=== PATIENT | female | born 1995 | race African-American/Black ===

== ENCOUNTER 2019-05-18 00:55 | Emergency (ER) ==
[2019-05-18 02:44] LABS: #Eosinphils 0.2 thou/uL (0.0-0.7); #Lymphocytes 2.6 thou/uL (1.20-3.40); #Monocytes 0.6 thou/uL (0.11-0.59); #Neutrophils 11.4 thou/uL (1.40-6.50); %Basophils 0.1 % (0.0-1.0); %Eosinophils 1.6 % (0.0-10.0); %Lymphocytes 17.6 % (21.0-51.0); %Monocytes 4.1 % (0.0-10.0); %Neutrophils 76.6 % (42.0-75.0); Hemoglobin 11.7 g/dL (12.0-16.0); Mean Corpuscular HGB CONC 34.5 g/dL (32.0-36.0); Mean Corpuscular Hemoglobin 26.2 pg (27.0-31.0); Mean Corpuscular Volume 75.9 fL (78.0-98.0); Mean Platelet Volume 9.2 fL (7.4-10.4); Platelet Count 445 thou/uL (130-400); RBC Distribution Width 15.3 % (11.5-14.5); Red Blood Cell (RBC) Count 4.48 mill/uL (4.20-5.40); White Blood Cell (WBC) Count 14.9 thou/uL (4.8-10.8)
[2019-05-18 03:06] LABS: ALT (SGPT) 11 U/L (8-55); AST (SGOT) 9 U/L (5-34); Alkaline Phosphatase 101 U/L (40-110); Anion Gap 12 mmol/L (10-20); BUN (Urea Nitrogen) 11 mg/dL (7.0-18.7); Bilirubin, Total 0.4 mg/dL (0.2-1.2); Calc. Creatinine Clearance 0 mL/min (70-130); Calcium 9.3 mg/dL (7.8-10.44); Carbon Dioxide 24 mmol/L (22-29); Chloride 101 mmol/L (98-107); Estimated GFR-MDRD 46; Globulin 4.5 g/dL (2.4-3.5); Glucose 208 mg/dL (70-105); Potassium 3.9 mmol/L (3.5-5.1); Protein, Total 8.5 g/dL (6.0-8.3); Sodium 133 mmol/L (136-145)
[2019-05-18] MEDS ORDERED: cefTRIAXone\\ROCEPHIN 2 GM VIAL ONE (03:16)
[2019-05-18] MEDS ORDERED: Metoclopramide HCl 10 MG/2 ML VIAL ONE (03:16)
[2019-05-18 03:53] LABS: Bilirubin Negative (Negative); Blood, Urine Negative (Negative); Clarity Clear (Clear); Glucose, Urine (Dipstick) Normal (Negative); Leukocyte 25 Leu/uL (Negative); Nitrite Negative (Negative); Protein, Urine (Dipstick) 30 mg/dL (Neg-Trace); RBC/HPF 0-3 HPF (0-3); Squamous Epithelial 0-3 HPF (0-3); Urobilinogen Normal mg/dL (Less than 2)
[2019-05-18 03:54] LABS: Bacteria/HPF 1+ HPF (None Seen)
[2019-05-18 03:57] LABS: Pregnancy Test - Urine (BHCG) Negative (Negative); Pregu Control Background? CLEAR/WHITE (CLR/WHITE); Pregu Control Bar Appear? YES (CONTROL BAR); Specific Gravity 1.022 (1.002-1.036)
--- NOTE | 2019-05-18 07:42 | CT ---
PRELIMINARY REPORT/[facility]/EMERGENCY AFTER HOURS PROCEDURE: EXAM: CT Head and maxillary facial bones without and without IV contrast. CLINICAL HISTORY: This is a 23 yo female with a pmh of seizures and asthma who presents to the ER wit h a cc of facial weakness on the right, photophobia, and headache. She states the symptoms are associated with a toothache. She states the tooth has been bothering her for 1 week. She reports the headache is frontal. She reports some pain with eye movement TECHNIQUE: Axial computed tomography images were acquired of the head/brain, and of the facial bones, without and with intravenous contrast. Sagittal and coronal reformatted images were obtained of the facial bones. FINDINGS: BRAIN: No acute intraparenchymal hemorrhage. No mass lesion. No CT evidence for acute territorial inf arct. No midline shift or extra-axial collection. VENTRICLES: No hydrocephalus. ORBITS: The orbits are unremarkable. SINUSES AND MASTOIDS: There is a complete opacification of the left maxillary sinus and of the left e thmoid sinus air cells. SOFT TISSUES: No significant facial or scalp soft tissue swelling evident. No radiopaque foreign body is seen. BONES: No acute fracture is evident on images of the facial bones, or the head. MISCELLANEOUS: There are a few slightly enlarged lymph node in the bilateral neck region with the lar gest one measuring up to 1.1 cm. IMPRESSION: 1. There is a complete opacification of the left maxillary sinus and of the left ethmoid sinus air ce lls. 2. There are a few slightly enlarged lymph node in the bilateral neck region with the largest one britni suring up to 1.1 cm. ELECTRONICALLY SIGNED BY: Bimal Santiago MD May 18, 2019 4:30:48 AM CDT FINAL REPORT HEAD CT WITHOUT CONTRAST: HISTORY: Seizure. Headache. Pain. COMPARISON: None. FINDINGS: Hemorrhage: No intraparenchymal hemorrhage or extra-axial hematoma. Brain parenchyma: Cortical cano-white matter differentiation is preserved. No mass effect or midline shift. Basilar cisterns are patent. Ventricular system: Ventricles and sulci are patent and symmetric. Calvarium: Intact. Sinuses and mastoid air cells: Left paranasal sinus disease. Hyperdense material may represent inspis sated secretions or possible fungal infection. There is bony hypertrophy suggesting a chronic process. IMPRESSION: 1. This report is in agreement with initial report by [facility]. 2. Left sinus disease. Correlate clinically Transcribed Date/Time: 05/18/2019 8:00 AM
--- NOTE | 2019-05-18 07:57 | CT ---
PRELIMINARY REPORT/[facility]/EMERGENCY AFTER HOURS PROCEDURE: EXAM: CT Head and maxillary facial bones without and without IV contrast. CLINICAL HISTORY: This is a 23 yo female with a pmh of seizures and asthma who presents to the ER wit h a cc of facial weakness on the right, photophobia, and headache. She states the symptoms are associated with a toothache. She states the tooth has been bothering her for 1 week. She reports the headache is frontal. She reports some pain with eye movement TECHNIQUE: Axial computed tomography images were acquired of the head/brain, and of the facial bones, without and with intravenous contrast. Sagittal and coronal reformatted images were obtained of the facial bones. FINDINGS: BRAIN: No acute intraparenchymal hemorrhage. No mass lesion. No CT evidence for acute territorial inf arct. No midline shift or extra-axial collection. VENTRICLES: No hydrocephalus. ORBITS: The orbits are unremarkable. SINUSES AND MASTOIDS: There is a complete opacification of the left maxillary sinus and of the left e thmoid sinus air cells. SOFT TISSUES: No significant facial or scalp soft tissue swelling evident. No radiopaque foreign body is seen. BONES: No acute fracture is evident on images of the facial bones, or the head. MISCELLANEOUS: There are a few slightly enlarged lymph node in the bilateral neck region with the lar gest one measuring up to 1.1 cm. IMPRESSION: 1. There is a complete opacification of the left maxillary sinus and of the left ethmoid sinus air ce lls. 2. There are a few slightly enlarged lymph node in the bilateral neck region with the largest one britni suring up to 1.1 cm. ELECTRONICALLY SIGNED BY: Bimal Santiago MD May 18, 2019 4:30:48 AM CDT FINAL REPORT POSTCONTRAST CT FACE: HISTORY: Seizure. Asthma. Facial weakness, right-sided. Headache. Photophobia. TECHNIQUE: Postcontrast facial bone CT/face CT is performed in the axial plane. Reformatted images are submitted for interpretation. FINDINGS: There is left paranasal sinus disease. Mild bony hypertrophy of the left maxillary sinus suggesting a possible chronic infection. There is hyperdense material in the left maxillary sinus which may be due to fungal disease versus inspissated secretions. Additional hyperdensity is noted in the anterior left ethmoid air cells. Bilateral orbits are unremarkable. There is fullness of the nasopharynx at the level of the adenoid tonsil. Mild fullness of the palatin e tonsils. There are some scattered mildly enlarged bilateral soft tissue neck lymph nodes. Symmetric attenuation of the parotid and submandibular glands. There is mass effect upon the posterior hypopharynx due to medial deviation of both common carotid ar teries. IMPRESSION: 1. This report is in agreement with the initial report by [facility]. 2. Mildly enlarged nonspecific bilateral soft tissue neck lymph nodes. Clinical correlation is essent ial. 3. Left sinus disease. Transcribed Date/Time: 05/18/2019 8:28 AM
[2019-05-18] MEDS ORDERED: Iopamidol-370 76% 500 ML 1 ML ONE (15:24)
--- NOTE | 2019-05-19 11:21 | EKG ---
Test Reason : Blood Pressure : / mmHG Vent. Rate : 107 BPM Atrial Rate : 107 BPM P-R Int : 150 ms QRS Dur : 068 ms QT Int : 328 ms P-R-T Axes : 044 047 026 degrees QTc Int : 437 ms Sinus tachycardia Possible Left atrial enlargement Borderline ECG Confirmed by MYNOR GUIDRY, HERIBERTO Mckeon ([id number]), news assignment editor MAHOGANY ALFRED ([id number]) on 05/19/2019 11:21:29 AM Referred By: Confirmed By:HERIBERTO LOWE MD
== END 2019-05-18 05:09 | disposition left against medical advice (07) ==
LOC: ERS 00:55
DX: J32.0 Chronic maxillary sinusitis (principal); J45.909 Unspecified asthma, uncomplicated; F31.9 Bipolar disorder, unspecified; F20.9 Schizophrenia, unspecified
CPT/HCPCS: 36415; 70450; 70487; 80053; 81003; 81015; 81025; 83605; 85025; 87040; 87077; 87149; 93005; 96361; 96365; 96375; J0696; J2765; Q9967

== ENCOUNTER 2019-05-19 13:01 | Inpatient (IN) | payer SELFPAY, OTHER ==
[2019-05-19] MEDS ORDERED: Iopamidol-370 76% 500 ML 1 ML ONE (13:59)
[2019-05-19] MEDS ORDERED: Piperacillin/Tazobactam 4.5 GM VIAL ONE (14:43)
[2019-05-19 14:49] LABS: #Eosinphils 0.1 thou/uL (0.0-0.7); #Lymphocytes 1.2 thou/uL (1.20-3.40); #Monocytes 0.7 thou/uL (0.11-0.59); #Neutrophils 8.1 thou/uL (1.40-6.50); %Basophils 0.1 % (0.0-1.0); %Eosinophils 0.8 % (0.0-10.0); %Lymphocytes 11.7 % (21.0-51.0); %Monocytes 6.6 % (0.0-10.0); %Neutrophils 80.8 % (42.0-75.0); Hemoglobin 11.2 g/dL (12.0-16.0); Mean Corpuscular HGB CONC 33.6 g/dL (32.0-36.0); Mean Corpuscular Hemoglobin 25.9 pg (27.0-31.0); Mean Corpuscular Volume 76.9 fL (78.0-98.0); Mean Platelet Volume 9.1 fL (7.4-10.4); Platelet Count 397 thou/uL (130-400); RBC Distribution Width 15.3 % (11.5-14.5); Red Blood Cell (RBC) Count 4.35 mill/uL (4.20-5.40)
[2019-05-19] MEDS ORDERED: Acetaminophen 650 MG Suppository ONE (15:06)
[2019-05-19 15:15] LABS: ALT (SGPT) 11 U/L (8-55); AST (SGOT) 18 U/L (5-34); Albumin 3.9 g/dL (3.5-5.0); Alkaline Phosphatase 95 U/L (40-110); Anion Gap 16 mmol/L (10-20); BUN (Urea Nitrogen) 10 mg/dL (7.0-18.7); Bilirubin, Total 1.1 mg/dL (0.2-1.2); Calc. Creatinine Clearance 0 mL/min (70-130); Calcium 8.9 mg/dL (7.8-10.44); Carbon Dioxide 21 mmol/L (22-29); Chloride 103 mmol/L (98-107); Estimated GFR-MDRD 51; Globulin 3.9 g/dL (2.4-3.5); Glucose 172 mg/dL (70-105); Potassium 4.2 mmol/L (3.5-5.1); Protein, Total 7.8 g/dL (6.0-8.3); Sodium 136 mmol/L (136-145)
[2019-05-19] MEDS ORDERED: Acetaminophen 325 MG TAB ONE (15:16)
[2019-05-19] MEDS ORDERED: Vancomycin 1 GM/200 ML BAG ONE ×2 (15:18→16:52)
[2019-05-19 15:19] LABS: Bilirubin Negative (Negative); Blood, Urine Large (Negative); Glucose, Urine (Dipstick) Negative (Negative); Leukocyte Trace (Negative); Nitrite Negative (Negative); Protein, Urine (Dipstick) 100 mg/dL (Neg-Trace); Urobilinogen 0.2 mg/dL (Less than 2)
[2019-05-19 15:21] LABS: Pregnancy Test - Urine (BHCG) Negative (Negative); Pregu Control Background? CLEAR/WHITE (CLR/WHITE); Pregu Control Bar Appear? YES (CONTROL BAR)
[2019-05-19 15:22] LABS: Clarity Clear (Clear)
[2019-05-19 15:28] LABS: RBC/HPF Greater than 50 HPF (0-3); WBC/HPF 21-50 HPF (0-3)
[2019-05-19 15:35] LABS: Bacteria/HPF 1+ HPF (None Seen)
--- NOTE | 2019-05-19 15:54 | CT ---
CT orbits with IV contrast HISTORY: Sinusitis. I pain. Fever. FINDINGS: Marked mucosal thickening of the ethmoid air cells and complete opacification of the left m axillary sinus is again demonstrated. Similar to CT face from 05/18/2019. No air-fluid levels within the sphenoid sinus. Soft tissue thickening and fat stranding within the fat about the left orbit has progressed significa ntly since the prior study. No soft tissue gas is evident. The inflammation is anterior to the orbital septum. Retro-orbital fat remains homogeneous. Muscles unremarkable. Globes are intact. IMPRESSION: Interval worsening of left periorbital subcutaneous edema. No evidence of retrobulbar ext ension. Marked left maxillary/ethmoid sinusitis appears stable
[2019-05-19] MEDS ORDERED: Acetaminophen 650 MG Suppository PR PRN (17:53)
--- NOTE | 2019-05-19 18:02 | PDOC.HHP ---
Hospitalist HPI - History of Present Illness Left eyelid pain/swelling History of Present Illness: Patient seen in the ED yesterday with headache and left eye pain. She had mild swelling of left eyelid yesterday. CT brain and face done yesterday showed left sinus disease with few slightly enlarged lymph nodes in the bilateral neck region. She was given Rocephin and clindamycin IV, then given a prescription for Clindamycin. She states this morning she woke up with increased swelling of the left eye that has worsened throughout the day. She reports having a generalized headache, pain over the left molar due to a cavity and pain over the left maxillary sinus. She states she uses fake eyelashes and last used a pair 2 days ago. Reports changing them every 2 days but sometimes wears them longer. Has not had any fevers. No nausea or vomiting but her appetite has been low. Denies any blurred or double vision. She expresses she is very anxious and has a fear of needles. ED Course: CT orbits done showed interval worsening of left periorbital subcutaneous edema. No evidence of retrobulbar extension. Marked left maxillary/ethmoid sinusitis appears stable. Inflammation is anterior to the orbital septum. Given Vanc and Zosyn. Labs done showed normal WCC and normal lactic acid. Creat 1.30, GFR 51, BUN 10. No previous to compare to. Given NS at 30mL/kg. Hospitalist ROS - Review of Systems Constitutional: denies: fever, chills, sweats, weakness, malaise, other Eyes: reports: pain (below left eye, no pain with EOM), eyelid inflammation ( left eyelid with constant drainage, purulent dry discharge this morning) ENT: reports: nose congestion, mouth pain (left side of her posterior mandible) Respiratory: denies: cough, dry, shortness of breath, hemoptysis, SOB with excertion, pleuritic pain, sputum, wheezing, other Cardiovascular: denies: chest pain, palpitations, orthopnea, paroxysmal noc. dyspnea, edema, light headedness, other Gastrointestinal: reports: other (reduced appetite). denies: nausea, vomiting, abdominal pain, diarrhea, constipation, melena, hematochezia Genitourinary: denies: dysuria, frequency, incontinence, hematuria, retention, other Musculoskeletal: denies: neck pain, shoulder pain, arm pain, back pain, hand pain, leg pain, foot pain, other Skin: denies: rash, lesions, pily, bruising, other Neurological: reports: other (Headache, mild but constant). denies: weakness, numbness, incoordination, change in speech, confusion, seizures Hospitalist History - Past Medical History Source: patient Pulmonary: reports: asthma [employer]: reports: Seizure Psych: reports: Anxiety, Bipolar, Schizophrenia - Past Surgical History Past Surgical History: reports: no pertinent history - Family History Family History: reports: no pertinent history - Social History Smoking Status: Never smoker Alcohol: reports: Occassional Drugs: reports: marijuana (last smoked 2 weeks ago) Living Situation: With Family Activity level: independent ambulation - Exam General Appearance: NAD General - other findings: Difficult to complete due to patient cooperation given fear/pain Eye: PERRL Eye - other findings: left blepharitis, boggy swelling, no firm nodule, EOM intact without pain ENT - other findings: Lft eye:clear fluid w/small amount of green d/c, Lft maxillary sinus tender Neck: supple Heart: RRR, normal peripheral pulses Respiratory: CTAB, no wheezes, no rales, no ronchi, normal chest expansion, no tachypnea Gastrointestinal: soft, non-tender, non-distended, normal bowel sounds Gastrointestinal - other findings: obese Extremities: no cyanosis, no clubbing, no edema Skin: normal turgor, no lesions, no rashes Neurological: cranial nerve grossly intact, normal sensation to touch Neurological - other findings: no facial numbness Musculoskeletal: normal tone, normal strength, no muscle wasting Psychiatric: normal affect, normal behavior, A&O x 3 Psychiatric - other findings: became nervous when being examined Hospitalist Results - Labs Result Diagrams: 05/19/19 14:39 05/19/19 14:39 Lab results: WBC 10.0 thou/uL (4.8-10.8) 05/19/19 14:39 Hgb 11.2 g/dL (12.0-16.0) L 05/19/19 14:39 Hct 33.4 % (36.0-47.0) L 05/19/19 14:39 MCV 76.9 fL (78.0-98.0) L 05/19/19 14:39 Plt Count 397 thou/uL (130-400) 05/19/19 14:39 Neutrophils % 80.8 % (42.0-75.0) H 05/19/19 14:39 Sodium 136 mmol/L (136-145) 05/19/19 14:39 Potassium 4.2 mmol/L (3.5-5.1) 05/19/19 14:39 Chloride 103 mmol/L (98-107) 05/19/19 14:39 Carbon Dioxide 21 mmol/L (22-29) L 05/19/19 14:39 BUN 10 mg/dL (7.0-18.7) 05/19/19 14:39 Creatinine 1.30 mg/dL (0.6-1.1) H 05/19/19 14:39 Glucose 172 mg/dL (70-105) H 05/19/19 14:39 Lactic Acid 1.5 mmol/L (0.5-2.2) 05/19/19 14:39 Calcium 8.9 mg/dL (7.8-10.44) 05/19/19 14:39 Total Bilirubin 1.1 mg/dL (0.2-1.2) 05/19/19 14:39 AST 18 U/L (5-34) 05/19/19 14:39 ALT 11 U/L (8-55) 05/19/19 14:39 Alkaline Phosphatase 95 U/L (40-110) 05/19/19 14:39 Serum Total Protein 7.8 g/dL (6.0-8.3) 05/19/19 14:39 Albumin 3.9 g/dL (3.5-5.0) 05/19/19 14:39 Urine Ketones Trace mg/dL (Negative) A 05/19/19 14:10 Urine Blood Large (Negative) A 05/19/19 14:10 Urine Nitrite Negative (Negative) 05/19/19 14:10 Ur Leukocyte Esterase Trace (Negative) H 05/19/19 14:10 Urine RBC Greater than 50 HPF (0-3) A 05/19/19 14:10 Urine WBC 21-50 HPF (0-3) A 05/19/19 14:10 Ur Squamous Epith Cells 7-10 HPF (0-3) A 05/19/19 14:10 Urine Bacteria 1+ HPF (None Seen) A 05/19/19 14:10 Hospitalist H&P A/P - Problem (1) Preseptal cellulitis of left upper eyelid Code(s): L03.213 - PERIORBITAL CELLULITIS Status: Acute (2) Sinusitis, acute Code(s): J01.90 - ACUTE SINUSITIS, UNSPECIFIED Status: Acute (3) Headache Code(s): R51 - HEADACHE Status: Acute (4) Decreased appetite Code(s): R63.0 - ANOREXIA Status: Acute (5) MAKAYLA (acute kidney injury) Code(s): N17.9 - ACUTE KIDNEY FAILURE, UNSPECIFIED Status: Acute (6) History of seizures Code(s): Z87.898 - PERSONAL HISTORY OF OTHER SPECIFIED CONDITIONS Status: Chronic (7) Anxiety Code(s): F41.9 - ANXIETY DISORDER, UNSPECIFIED Status: Chronic (8) Asthma Code(s): J45.909 - UNSPECIFIED ASTHMA, UNCOMPLICATED Status: Chronic - Plan Plan: Continue IV Antibiotics (Vanc and Rocephin) ENT consult Repeat labs in AM including lactic acid. IV fluids Monitor renal function CODE STATUS: FULL Surrogate decision maker is her mother Michelle Coleman.
[2019-05-19] MEDS: Acetaminophen 325 MG TAB PO PRN (20:49)
[2019-05-19] MEDS: Sodium Chloride 0.9% 1,000 ML IV SCH (20:49)
[2019-05-19 21:31] VITALS: BMI 46.3
[2019-05-19] MEDS ORDERED: Sodium Chloride 0.65% Nasal 44 ML BOT EA NARE PRN (22:07)
[2019-05-19] MEDS ORDERED: Ketorolac Tromethamine 30 MG/ML VIAL IVP SCH (22:15)
[2019-05-20] MEDS: Sodium Chloride 0.9% 1,000 ML IV SCH ×2 (08:37→20:40)
[2019-05-20] MEDS: cefTRIAXone\\ROCEPHIN 2 GM in Sodium Chloride 0.9% 100 ML IVPB SCH (08:37)
[2019-05-20 09:48] LABS: #Eosinphils 0.2 thou/uL (0.0-0.7); #Lymphocytes 1.6 thou/uL (1.20-3.40); #Monocytes 0.7 thou/uL (0.11-0.59); #Neutrophils 6.3 thou/uL (1.40-6.50); %Basophils 0.1 % (0.0-1.0); %Eosinophils 2.1 % (0.0-10.0); %Lymphocytes 18.1 % (21.0-51.0); %Monocytes 8.3 % (0.0-10.0); %Neutrophils 71.3 % (42.0-75.0); Hemoglobin 9.9 g/dL (12.0-16.0); Mean Corpuscular HGB CONC 33.1 g/dL (32.0-36.0); Mean Corpuscular Hemoglobin 25.5 pg (27.0-31.0); Mean Corpuscular Volume 77.2 fL (78.0-98.0); Mean Platelet Volume 9.1 fL (7.4-10.4); Platelet Count 343 thou/uL (130-400); Red Blood Cell (RBC) Count 3.86 mill/uL (4.20-5.40); White Blood Cell (WBC) Count 8.8 thou/uL (4.8-10.8)
[2019-05-20 10:02] LABS: Anion Gap 13 mmol/L (10-20); BUN (Urea Nitrogen) 8 mg/dL (7.0-18.7); Calc. Creatinine Clearance 145 mL/min (70-130); Calcium 7.9 mg/dL (7.8-10.44); Carbon Dioxide 20 mmol/L (22-29); Chloride 105 mmol/L (98-107); Estimated GFR-MDRD 63; Glucose 253 mg/dL (70-105); Potassium 3.8 mmol/L (3.5-5.1); Sodium 134 mmol/L (136-145)
[2019-05-20] MEDS ORDERED: Ketorolac Tromethamine 30 MG/ML VIAL IVP PRN (11:30)
[2019-05-20] MEDS: Sodium Chloride 0.65% Nasal 44 ML BOT EA NARE SCH ×2 (14:07→20:52)
[2019-05-20] MEDS: Artificial Tears 18 DROP/0.9 ML EA EYE SCH ×3 (14:07→20:35)
--- NOTE | 2019-05-20 16:05 | CON ---
DATE OF CONSULTATION: 05/20/2019 REASON FOR CONSULTATION: Facial cellulitis, sinusitis, and bacteremia. HISTORY OF PRESENT ILLNESS: A 23-year-old, who has a history of asthma, seizure activity, and bipolar disorder, who has had problems with her left upper molar and has been to the emergency room for that issue, the first time was on May 17. She presented with headache, photophobia, and her temperature was 101.1. The left eyelid appeared tender to palpation. There is mild edema. She had sinus tachycardia. The remainder of the aspects of the exam were normal. The patient had a CT scan done of facial bone and it showed complete opacification of left maxillary sinus and left ethmoid sinus air cells, very few slightly enlarged lymph nodes in the bilateral neck region. The patient was recommended admission to the hospital, but she declined it and was discharged on oral clindamycin. She came back the very next day with persistence of symptoms, worsening of pain and fever. This time, she agreed to admission. She still had some headaches and some eye discharge. No ear symptoms. No nasal symptoms. Some pain in the left upper maxilla. No sore throat, odynophagia, or dysphagia. No cough, sputum production, or chest pain. No abdominal pain or diarrhea. No genitourinary symptoms. No bleeding. No joint symptoms or skin disorder. No neurological issues. MEDICAL HISTORY: Seizure activity, asthma, bipolar disorder, schizophrenia is listed here too. SOCIAL HISTORY: Drinks occasionally. No cigarette smoking history. Goes to [employer] and she works part-time. Lives in [place]. ALLERGIES: NONE. MEDICATIONS: Medication list at the moment, she is receiving; 1. Ceftriaxone. 2. Toradol. 3. Nasal decongestant. 4. Vancomycin. FAMILY HISTORY: Noncontributory. PHYSICAL EXAMINATION: VITAL SIGNS: T-max 103, now is 99.6; blood pressure 117/75; pulse 97; respirations 16. GENERAL: Awake, alert, appears in some distress because of the left facial pain. SKIN: Normal. There is no lymphadenopathy. HEENT: Left periorbital swelling, but the orbit itself is normal. Sclerae are white. Pupils are equal and reactive. Conjunctivae are normal. Nasal passages, obstructed passages left side. Ear exam normal. Some malar tenderness left side. Oral cavity with no major inflammatory process noticed in the oral cavity. No maxillary tenderness noted. NECK: Supple. No jugular vein distention. LUNGS: Symmetric. Clear breath sounds. HEART: S1 and S2. Regular rate. No S3 or S4. ABDOMEN: Soft, not distended or tender. No ascites. No bladder distention. EXTREMITIES: No joint inflammatory activity. Moves extremities equally. Cognitive function appears to be intact. LABORATORY DATA: White cell count is 10.0 and 8.8, hemoglobin 11 and 9, platelets 343 with 80% neutrophils down to 71. Sodium 136, creatinine 1.3 and 1.29. Liver profile normal. Albumin 3.9. Urinalysis, 21 to 50 wbc's. Microbiology with Streptococcus anginosus group, one set of blood cultures. IMAGING STUDIES: Orbit CT from yesterday with interval worsening of left periorbital subcutaneous edema. No evidence of retrobulbar extension. ASSESSMENT: 1. Dental pain, left upper maxilla. 2. Left-sided maxillary and ethmoid sinusitis. 3. Periorbital cellulitis, possibly just a preseptal. 4. Bacteremia with Streptococcus anginosus. DISCUSSION: Bacteremia in the setting of sinusitis is relatively rare, although when it happens Streptococci the most common offenders. Streptococcus anginosus is well known to be associated with abscess formation. Ethmoid sinusitis cases can be associated with obstruction of venous flow in the orbit because of compromise of the lamina papyracea. In those cases, the patient usually developed orbital hyperemia with some proptosis. Venous sinus thrombosis is not likely in view of the lack of proptosis or hyperemia of the conjunctivae. No evidence to suggest meningitis at the moment. The organism isolated is broadly susceptible to Rocephin and I would expect continuation of proper response to the antimicrobial therapy administered. Vancomycin is not necessary in this circumstance. Surgical drainage specifically sinus drainage via surgical means might be necessary depending on clinical response. Job ID: [id number]
[2019-05-20 16:33] LABS: HIV (1/2) Antibody/Antigen Non-Reactive (NonReactive)
[2019-05-20] MEDS ORDERED: Oxymetazoline HCl 0.05% (30 ML BOT) NS SCH (21:00)
[2019-05-20] MEDS ORDERED: Sodium Chloride 0.9% 15 ML NEB IR SCH (21:00)
[2019-05-20] MEDS ORDERED: AFRIN NASAL MIST 15 ML BOT NS SCH (21:00)
[2019-05-21] MEDS: Acetaminophen 325 MG TAB PO PRN ×2 (04:47→17:42)
--- NOTE | 2019-05-21 07:57 | PDOC.HOSPP ---
- Subjective Encounter Date: 05/20/19 Encounter Time: 17:00 Subjective: Patient seen and examined for Perirorbital cellulitis/acute sinusitis. Pain controlled. Eye swelling improving. No pain with eye movement. No other complaints. No overnight events - Objective Vital Signs & Weight: Vital Signs (12 hours) Temp Pulse Resp BP Pulse Ox 05/20/19 20:00 98.5 F 107 H 18 119/84 99 Weight Weight 295 lb 6.711 oz Result Diagrams: 05/20/19 09:32 05/20/19 09:32 EKG Reviewed by me: Yes (Ortbital CT - reviewed) Hospitalist ROS - Review of Systems Respiratory: denies: cough, dry, shortness of breath, hemoptysis, SOB with excertion, pleuritic pain, sputum, wheezing, other Cardiovascular: denies: chest pain, palpitations, orthopnea, paroxysmal noc. dyspnea, edema, light headedness, other Gastrointestinal: denies: nausea, vomiting, abdominal pain, diarrhea, constipation, melena, hematochezia, other - Medication Medications: Active Medications Generic Name Dose Route Start Last Admin Trade Name Freq PRN Reason Stop Dose Admin Acetaminophen 650 mg 05/19/19 17:53 05/21/19 04:47 Tylenol PO 650 mg Q4H PRN Administration Headache/Fever/Mild Pain (1-3) Artificial Tears 0 drop 05/20/19 13:00 05/20/19 20:35 Tears Naturale EA EYE 40 drop QID HEIDI Administration Ceftriaxone Sodium 2 gm/ 100 mls @ 200 mls/hr 05/20/19 08:00 05/20/19 08:37 Sodium Chloride IVPB 100 mls 0800 HEIDI Administration Sodium Chloride 1,000 mls @ 75 mls/hr 05/19/19 18:00 05/20/19 20:40 Normal Saline 0.9% IV Not Given .[id number] HEIDI Oxymetazoline HCl 15 ml 05/20/19 21:00 05/20/19 20:36 Nasal Decongestant NS 15 ml BID HEIDI Administration Sodium Chloride 0 ml 05/19/19 22:07 05/20/19 20:36 [place] Nasal [place] 0.65% EA NARE 1 spr TID PRN Administration Nasal Congestion Sodium Chloride 0 ml 05/20/19 15:00 05/20/19 20:52 [place] Nasal [place] 0.65% EA NARE Not Given TID HEIDI - Exam General Appearance: NAD Eye: PERRL, anicteric sclera Eye - other findings: Perirorbital swelling with warmth Neck: supple, no JVD Heart: RRR, no gallops, no rubs, normal peripheral pulses Respiratory: no wheezes, no rales, no ronchi, normal chest expansion Gastrointestinal: non-tender, non-distended, normal bowel sounds, no guarding, no rigidity Extremities: no cyanosis, no clubbing, no edema Neurological: no new deficit Psychiatric: normal affect, A&O x 3 Hosp A/P - Plan DVT proph w/SCDs Sepsis/Strep bacteremia due to Perirorbital cellulitis/acute sinusitis Morbid obesity BMI 46.3 CKD 2 Hyponatremia Chronic anemia - prob due to iron def PLAN: Cont Ceftriaxone Add Afrin with nasal irrigation per ENT follow cultures Ambulate DC IVF if tolerating PO ENT/ID/Ophthal input appreciated
[2019-05-21] MEDS: Oxymetazoline HCl 0.05% (30 ML BOT) NS SCH ×2 (09:18→21:41)
[2019-05-21] MEDS: cefTRIAXone\\ROCEPHIN 2 GM in Sodium Chloride 0.9% 100 ML IVPB SCH (09:18)
[2019-05-21] MEDS: Saccharomyces boulardii 250 MG CAP PO SCH (09:19)
[2019-05-21] MEDS: Sodium Chloride 0.65% Nasal 44 ML BOT EA NARE SCH ×3 (09:19→21:40)
[2019-05-21] MEDS: Artificial Tears 18 DROP/0.9 ML EA EYE SCH ×4 (09:20→21:41)
[2019-05-21] MEDS: Sodium Chloride 0.9% 1,000 ML IV SCH (10:45)
--- NOTE | 2019-05-21 13:41 | CON ---
DATE OF CONSULTATION: 05/21/2019 TIME: 0730 hours. REASON FOR CONSULT: Left preseptal cellulitis. HISTORY OF PRESENT ILLNESS: The patient is a 23-year-old woman who developed tenderness and swelling of the left lid several days ago from the emergency room on May 19, 2019, and is now on IV antibiotics. The patient states that the sinuses CT head showed that sinus infection is likely source of infection. That record is not available to me. PHYSICAL EXAMINATION: The patient is nearsighted and wears glasses at home. Visual acuity without correction in near vision is J-5 for right eye and J-3 ( 2) for the left eye. The right anterior segment is completely normal. The left anterior segment shows redness, swelling, tenderness, and matting of the left lid. The left ocular conjunctiva is completely white with white sclerae. There is no sign of exophthalmos or proptosis. The ocular motility is completely full for both eyes. The pupils reactive without pupillary defect. IMPRESSION: Preseptal cellulitis. PLAN: The patient is currently on appropriate treatment and I cannot add anything new. Job ID: [id number]
[2019-05-21] MEDS ORDERED: Labetalol HCl 100 MG/20 ML VIAL ONE (14:04)
--- NOTE | 2019-05-21 16:52 | PRG ---
DATE OF SERVICE: 05/21/2019 SUBJECTIVE: Feeling better. The eye is less swollen. She can actually open it, the vision is therefore easier. No sore throat. No respiratory symptoms. No abdominal pain. OBJECTIVE: VITAL SIGNS: Temperature now is normalized. HEENT: The left orbit is visible now. She can open much easier the left eyelid, which is less swollen, less tender. LUNGS: Clear. HEART: S1 and S2. Regular rate. ABDOMEN: Soft, not distended. NEUROLOGIC: Normal. LABORATORY DATA: White cell count 8.8, hemoglobin 9.9, platelets 343, creatinine 1.29 which is improved from admission. Microbiology with the strep anginosus, one set of blood cultures. ASSESSMENT AND DISCUSSION: Maxillary ethmoid sinusitis, left side with periorbital cellulitis, preseptal with improvement associated with Streptococcus anginosus bacteremia. Hopefully, in the next 2 days, be able to go home on Augmentin for 2 or 3 weeks. Job ID: [id number]
--- NOTE | 2019-05-21 18:17 | PDOC.HOSPP ---
- Subjective Encounter Date: 05/21/19 Encounter Time: 10:30 Subjective: Patient seen and examined for Cellulitis/Sinusitis. Eyelid swelling improving. No N/V/D. No new complaints. No overnight events - Objective Vital Signs & Weight: Vital Signs (12 hours) Temp Pulse Resp BP BP BP Pulse Ox 05/21/19 15:16 94 127/87 05/21/19 13:00 98.5 F 94 20 127/87 05/21/19 08:55 95 05/21/19 07:54 98.7 F 107 H 20 107/73 95 Weight Weight 295 lb 6.711 oz I&O: 05/20/19 05/21/19 05/22/19 06:59 06:59 06:59 Output Total 200 Balance -200 Result Diagrams: 05/20/19 09:32 05/20/19 09:32 Hospitalist ROS - Review of Systems Respiratory: denies: cough, dry, shortness of breath, hemoptysis, SOB with excertion, pleuritic pain, sputum, wheezing, other Cardiovascular: denies: chest pain, palpitations, orthopnea, paroxysmal noc. dyspnea, edema, light headedness, other - Medication Medications: Active Medications Generic Name Dose Route Start Last Admin Trade Name Freq PRN Reason Stop Dose Admin Acetaminophen 650 mg 05/19/19 17:53 05/21/19 17:42 Tylenol PO 650 mg Q4H PRN Administration Headache/Fever/Mild Pain (1-3) Artificial Tears 0 drop 05/20/19 13:00 05/21/19 17:43 Tears Naturale EA EYE 2 drop QID HEIDI Administration Ceftriaxone Sodium 2 gm/ 100 mls @ 200 mls/hr 05/20/19 08:00 05/21/19 09:18 Sodium Chloride IVPB 100 mls 0800 HEIDI Administration Sodium Chloride 1,000 mls @ 75 mls/hr 05/19/19 18:00 05/21/19 10:45 Normal Saline 0.9% IV 1,000 mls .[id number] HEIDI Administration Oxymetazoline HCl 0 ml 05/21/19 09:00 05/21/19 09:18 Nasal Decongestant NS 1 ml BID HEIDI Administration Saccharomyces Boulardii 250 mg 05/21/19 09:00 05/21/19 09:19 Florastor PO 250 mg DAILY HEIDI Administration Sodium Chloride 0 ml 05/19/19 22:07 05/20/19 20:36 [place] Nasal [place] 0.65% EA NARE 1 spr TID PRN Administration Nasal Congestion Sodium Chloride 0 ml 05/20/19 15:00 05/21/19 15:09 [place] Nasal [place] 0.65% EA NARE 1 spr TID HEIDI Administration - Exam General Appearance: NAD Eye: PERRL, anicteric sclera Eye - other findings: improving eyelid swelling, ENT: moist mucosa Heart: RRR, no gallops Respiratory: no wheezes, no ronchi Gastrointestinal: non-tender, non-distended, normal bowel sounds Extremities: no cyanosis, no clubbing Neurological: no new deficit Hosp A/P - Plan DVT proph w/SCDs Sepsis/Strep bacteremia due to Perirorbital cellulitis/acute Maxillary ethmoid sinusitis Morbid obesity BMI 46.3 CKD 2 Hyponatremia Chronic anemia - prob due to iron def PLAN: Cont IV Ceftriaxone Cont Afrin with nasal irrigation per ENT Cont other meds as above Ambulate DC IVF
[2019-05-22] MEDS: Acetaminophen 325 MG TAB PO PRN ×2 (00:33→18:12)
--- NOTE | 2019-05-22 01:12 | CON ---
DATE OF CONSULTATION: CHIEF COMPLAINT: Left eye swelling, facial pain and pressure. HISTORY OF PRESENT ILLNESS: The patient is a 23-year-old female patient presenting to the emergency room with headache and left eye pain and complaining of left eye swelling. The patient had a previous CT scan the day prior and showed acute sinusitis with some enlarged lymph nodes in the left neck. The patient was given antibiotics and then given a prescription of clindamycin; however, the patient awoke this a.m. having increased swelling of the left eye pain and pressure and reported headache as well as eye pain and dental pain. The patient presented to the emergency room for further evaluation and ENT was consulted given significant sinusitis. PAST MEDICAL HISTORY: None. PAST SURGICAL HISTORY: No head and neck surgeries. No history of sinus surgeries or ocular surgeries. ALLERGIES: NO KNOWN DRUG ALLERGIES. SOCIAL HISTORY: Noncontributory. FAMILY HISTORY: Noncontributory. REVIEW OF SYSTEMS: Negative except as listed in HPI. PHYSICAL EXAMINATION: GENERAL: Alert and oriented, however, somewhat somnolent. HEENT: Head, normocephalic, atraumatic. No skin lesions or masses. Parotid and submandibular glands are soft to touch with no masses or lesions. Eyes; pupils equally round on the right and extraocular movements are intact. Left eye is difficult to evaluate given significant swelling. Ears, pinnae are intact bilaterally. EACs are clear. No bleeding or infection. No effusion. TMs are intact. Nasal cavity and nasal mucosa are moist. There is significant edema of the turbinates and the septum on the left side and mild edema on the right. There is no visible purulence draining from the nose and no visible purulence on anterior rhinoscopy. Oral cavity, oropharynx, teeth, lips, and tongue are normal in appearance. Floor of mouth is soft. There is no infection of the tonsillar tissue or posterior pharyngeal tissue. Soft palate elevates symmetrically. Uvula intact. No swelling at the base of tongue. Mucous membranes are moist. NECK: Trachea is midline. No significant palpable lymphadenopathy. Mild shotty lymphadenopathy. Thyroid is without masses or lesions. The patient's larynx elevates normally with deglutition and normal laryngeal crepitus. IMAGING STUDIES: CT imaging, there is significant opacification as well as inflammation in the ethmoid and maxillary sinuses tracking towards the frontal sinus indicating acute sinusitis. There is also clear left periorbital and preseptal swelling and edema. There is no fluid collection. There is no Dandre classification given that there is no inflammation seen in the orbit. The rectus muscle and ocular nerve are intact. The lamina papyracea is intact. There is no gas or fracture of the lamina papyracea or erosion and no fluid collection in the ethmoid sinuses on the side of the nasal cavity or on the side of the orbit. The orbital apex is clear with no significant masses or lesions or mass effect. ASSESSMENT AND PLAN: A 23-year-old female with clear acute sinusitis and left periorbital preseptal cellulitis, ocular pain, and facial pain and pressure. Given the patient's acute symptoms, recommend continued IV antibiotics, empiric antibiotics until the patient's swelling goes down. Recommend Ophthalmology consult as soon as possible. Recommend nasal sinus regimen with nasal saline irrigations with Afrin 2 sprays on each side b.i.d. for a total of 5 days. After the patient has completed inpatient stay, recommend follow up in clinic for sinus issues and for narrow ostiomeatal complex seen on CT scan and for possible chronic obstruction of the maxillary and ethmoid as well as frontal sinuses. The patient is free to make a clinic appointment by calling [phone]. Thank you for this consultation. Job ID: [id number] [facility]
[2019-05-22] MEDS: cefTRIAXone\\ROCEPHIN 2 GM in Sodium Chloride 0.9% 100 ML IVPB SCH (10:09)
[2019-05-22] MEDS: Saccharomyces boulardii 250 MG CAP PO SCH (10:09)
[2019-05-22] MEDS: Oxymetazoline HCl 0.05% (30 ML BOT) NS SCH ×2 (10:29→22:17)
[2019-05-22] MEDS: Sodium Chloride 0.65% Nasal 44 ML BOT EA NARE SCH ×3 (10:30→22:18)
[2019-05-22] MEDS: Artificial Tears 18 DROP/0.9 ML EA EYE SCH ×4 (10:30→22:18)
--- NOTE | 2019-05-22 13:30 | PDOC.HOSPP ---
- Subjective Encounter Date: 05/22/19 Encounter Time: 11:00 Subjective: Patient seen and examined for Sepsis. Feeling better. Swelling improving. No new complaints. No overnight events - Objective Vital Signs & Weight: Vital Signs (12 hours) Temp Pulse Resp BP Pulse Ox 05/22/19 08:00 99.3 F 104 H 18 110/73 99 Weight Weight 295 lb 6.711 oz I&O: 05/21/19 05/22/19 05/23/19 06:59 06:59 06:59 Intake Total 1000 Output Total 200 Balance 800 Result Diagrams: 05/20/19 09:32 05/20/19 09:32 Hospitalist ROS - Review of Systems Respiratory: denies: cough, dry, shortness of breath, hemoptysis, SOB with excertion, pleuritic pain, sputum, wheezing, other Cardiovascular: denies: chest pain, palpitations, orthopnea, paroxysmal noc. dyspnea, edema, light headedness, other - Medication Medications: Active Medications Generic Name Dose Route Start Last Admin Trade Name Freq PRN Reason Stop Dose Admin Acetaminophen 650 mg 05/19/19 17:53 05/22/19 00:33 Tylenol PO 650 mg Q4H PRN Administration Headache/Fever/Mild Pain (1-3) Artificial Tears 0 drop 05/20/19 13:00 05/22/19 10:30 Tears Naturale EA EYE 1 drop QID HEIDI Administration Ceftriaxone Sodium 2 gm/ 100 mls @ 200 mls/hr 05/20/19 08:00 05/22/19 10:09 Sodium Chloride IVPB 100 mls 0800 HEIDI Administration Oxymetazoline HCl 0 ml 05/21/19 09:00 05/22/19 10:29 Nasal Decongestant NS 30 ml BID HEIDI Administration Saccharomyces Boulardii 250 mg 05/21/19 09:00 05/22/19 10:09 Florastor PO 250 mg DAILY HEIDI Administration Sodium Chloride 0 ml 05/19/19 22:07 05/20/19 20:36 [place] Nasal [place] 0.65% EA NARE 1 spr TID PRN Administration Nasal Congestion Sodium Chloride 0 ml 05/20/19 15:00 05/22/19 10:30 [place] Nasal [place] 0.65% EA NARE 1 spr TID HEIDI Administration - Exam General Appearance: NAD Eye: PERRL Eye - other findings: swelling improving Heart: RRR, no gallops Respiratory: no wheezes, no ronchi Gastrointestinal: non-tender, non-distended, normal bowel sounds Extremities: no cyanosis Hosp A/P - Plan DVT proph w/SCDs Sepsis/Strep bacteremia due to Perirorbital cellulitis/acute Maxillary Ethmoid sinusitis Morbid obesity BMI 46.3 CKD 2 Hyponatremia Chronic anemia - prob due to iron def PLAN: Cont IV Ceftriaxone for 1-2 more days Augmentin x 2-3 weeks per ID Consult CM for med assistance Cont Afrin with nasal irrigation per ENT Cont other meds as above
[2019-05-23 07:58] VITALS: BP 114/81; TEMP 99.7
[2019-05-23] MEDS: Sodium Chloride 0.65% Nasal 44 ML BOT EA NARE SCH ×2 (09:39→16:28)
[2019-05-23] MEDS: Oxymetazoline HCl 0.05% (30 ML BOT) NS SCH (09:39)
[2019-05-23] MEDS: Saccharomyces boulardii 250 MG CAP PO SCH (09:40)
[2019-05-23] MEDS: Artificial Tears 18 DROP/0.9 ML EA EYE SCH ×3 (09:40→16:28)
[2019-05-23] MEDS: cefTRIAXone\\ROCEPHIN 2 GM in Sodium Chloride 0.9% 100 ML IVPB SCH (10:36)
--- NOTE | 2019-05-23 18:57 | DIS ---
DATE OF ADMISSION: 05/19/2019 DATE OF DISCHARGE: 05/23/2019 DISCHARGE DISPOSITION: Home. FOLLOWUP: 1. Follow up with primary care physician at [facility] in 1 week. 2. Follow up with ENT, Dr. Archer and Infectious Disease, Dr. Hutton in 1 week. ALLERGIES: NO KNOWN DRUG ALLERGIES. DISCHARGE MEDICATIONS: Augmentin 875 mg twice daily for three weeks. The patient was seen on the day of discharge. Denies any new complaints. BRIEF HOSPITAL COURSE: The patient is a 23-year-old female, who presented to the hospital with headache along with left eye pain. Her workup was consistent with periorbital cellulitis with maxillary and ethmoid sinusitis. Blood culture, one of two was positive for Streptococcus anginosus. She was evaluated by Ophthalmology, ENT as well as Infectious Disease, Dr. Hutton. She was placed on IV ceftriaxone, which has been transitioned to oral Augmentin per Infectious Disease's recommendation. She was also started on Afrin nasal sprays along with nasal irrigation. She was advised to continue irrigation along with Afrin twice daily for total of 5 days. She was advised to follow up with ENT next week. She was also evaluated by Ophthalmology - Orbital cellulitis was ruled out. Swelling has significantly improved. She has been cleared by consultants for discharge. FINAL DIAGNOSES: 1. Sepsis secondary to periorbital cellulitis with acute marked left maxillary and ethmoid sinusitis. 2. Streptococcus bacteremia secondary to #1. 3. Morbid obesity with a BMI of 46.3. 4. Chronic kidney disease, stage 2. 5. Hyponatremia. 6. Chronic anemia. The patient understands the above plan of care. Job ID: [id number] [facility]
== END 2019-05-23 16:47 | disposition home or self-care (01) | DRG 872 ==
LOC: ERS 13:01 → T4-B 16:39
PROVIDERS: ADMIT Internal Medicine; ATTEND Internal Medicine
DX: A40.8 Other streptococcal sepsis (principal); L03.213 Periorbital cellulitis; N17.9 Acute kidney failure, unspecified; Z68.42 Body mass index [BMI] 45.0-49.9, adult; E87.1 Hypo-osmolality and hyponatremia; J45.909 Unspecified asthma, uncomplicated; J01.90 Acute sinusitis, unspecified; R51 Headache; R63.0 Anorexia; F41.9 Anxiety disorder, unspecified; F31.9 Bipolar disorder, unspecified; K08.89 Other specified disorders of teeth and supporting structures; E66.01 Morbid (severe) obesity due to excess calories; N18.2 Chronic kidney disease, stage 2 (mild); D50.9 Iron deficiency anemia, unspecified; Z87.898 Personal history of other specified conditions
CPT/HCPCS: 36415; 36416; 70481; 80053; 81003; 81015; 81025; 83605; 85025; 87040; 87086; 87389; 96365; 96366; 96367; J0696; J1885; J2543; J3370; J3490; J7050; Q9967